=== PATIENT | female | born 1945 | race African-American/Black ===

== ENCOUNTER 2017-01-06 16:08 | Emergency (ER) | payer MEDICARE, MEDICAID ==
[~2017-01-06] VITALS: Ht 167.6 cm; Wt 121.0 kg
[~2017-01-06 16:08] MED LIST: CALC667C4 PO; CARB1TAB21 PO; CINA30 PO; DOCU-138; ESOM40CA PO; GABA300S PO; HYDR-3513; HYDR-523 PO; LEVE1000 PO; LORA0.5T2 PO; MULT-348 PO; OXYC500S; SEVE800T8 PO; [UNRECOGNIZED DRUG - CODE]
[2017-01-06] MEDS ORDERED: MORPHINE SULFATE 10 MG/ML CPJ IM ONE (17:45)
[2017-01-06 18:16] VITALS: BP 120/88
== END 2017-01-06 18:19 | disposition home or self-care (01) ==
LOC: ER 16:09
DX: B02.9 Zoster without complications (principal); N18.6 End stage renal disease; J44.9 Chronic obstructive pulmonary disease, unspecified; J45.909 Unspecified asthma, uncomplicated; Z99.2 Dependence on renal dialysis; Z79.899 Other long term (current) drug therapy; Z86.73 Personal history of transient ischemic attack (TIA), and cerebral infarction without residual deficits; Z85.9 Personal history of malignant neoplasm, unspecified; Z90.710 Acquired absence of both cervix and uterus; Z90.49 Acquired absence of other specified parts of digestive tract
CPT/HCPCS: 96372; 99283; J2270

== ENCOUNTER 2017-07-31 15:42 | Emergency (ER) | payer MEDICARE, MEDICAID ==
[~2017-07-31] VITALS: Ht 167.6 cm; Wt 116.0 kg
[2017-07-31 16:01] VITALS: BP 102/56
[2017-07-31 18:10] LABS: BASOPHILS % 0.8 % (0.0-2.0); EOSINOPHILS % 2.4 % (0.0-5.0); HEMATOCRIT. 37.4 % (36.0-48.0); HEMOGLOBIN. 12.1 g/dL (12.0-16.0); LYMPHOCYTES % 12.8 % (20.0-50.0); MEAN CORPUSCULAR HEMOGLOBIN 31.7 pg (28.0-32.0); MEAN CORPUSCULAR VOLUME 98.2 fL (81.0-99.0); MEAN PLATELET VOLUME 8.7 fl (7.4-10.4); MONOCYTES % 7.2 % (2.0-8.0); NEUTROPHILS % 76.8 % (40.0-76.0); PLATELET 149 x1000/uL (130-400); RED BLOOD CELL COUNT 3.81 mill/uL (4.2-5.4); RED CELL DISTRIBUTION WIDTH 16.3 % (11.6-14.6)
[2017-07-31 18:14] LABS: CHLORIDE 97 mEq/L (98-107)
[2017-07-31 18:16] LABS: INR 1.1; PROTHROMBIN TIME 11.8 sec (9.4-11.6)
[2017-07-31 18:23] LABS: CARBON DIOXIDE 28 mEq/L (21-32)
== END 2017-07-31 22:05 | disposition left against medical advice (07) ==
LOC: ER 16:27
DX: M25.519 Pain in unspecified shoulder (principal); J44.9 Chronic obstructive pulmonary disease, unspecified; Z86.73 Personal history of transient ischemic attack (TIA), and cerebral infarction without residual deficits; Z99.2 Dependence on renal dialysis; Z90.49 Acquired absence of other specified parts of digestive tract; Z90.710 Acquired absence of both cervix and uterus
CPT/HCPCS: 36415; 80053; 85025; 85610; 99285